=== PATIENT | female | born 1995 | race Caucasian/White ===

== ENCOUNTER 2020-03-31 13:37 | Emergency (ER) | payer MEDICAID ==
[~2020-03-31] VITALS: Ht 170.2 cm; Wt 59.9 kg
--- NOTE | 2020-03-31 13:55 | NUR ---
Patient to ER bed 03 to gown for evaluation. Side rails up.
[2020-03-31 13:56] VITALS: BP_SYST 115
--- NOTE | 2020-03-31 13:58 | NUR ---
Pt's mother called in regards to pt status. Requested call if need of any info or update. ICELLE: [phone]
--- NOTE | 2020-03-31 15:00 | NUR ---
Pt came to ER for anxiety, tremors, mild chest pressure. Pt in [facility] awaiting MD resting.
--- NOTE | 2020-03-31 15:07 | NUR ---
ER at bedside examining patient.
[2020-03-31] MEDS ORDERED: LORazepam 2 MG/ML VIAL IM ONE (15:15)
--- NOTE | 2020-03-31 16:00 | NUR ---
Claudette wilkins in ED - 03/31/20 at 1611 by TRENTONW Pt came to ER for anxiety, tremors, mild chest pressure. Pt in [facility] awaiting MD resting.
--- NOTE | 2020-03-31 16:13 | NUR ---
Patient given written and verbal discharge instructions and verbalizes understanding. ER MD discussed with patient the results and treatment provided. Patient in stable condition. ID arm band removed. Rx of Ativan given. Patient educated on pain management and to follow up with PMD. Pain Scale 0/10. Opportunity for questions provided and answered. Medication side effect fact sheet provided.
[2020-03-31 16:14] VITALS: BP_SYST 115
== END 2020-03-31 16:13 | disposition home or self-care (01) ==
LOC: SED 13:37
DX: R07.89 Other chest pain (principal)
CPT/HCPCS: 71045; 93005; 96372; 99283; J2060